=== PATIENT | female | born 1995 | race Caucasian/White ===

== ENCOUNTER 2019-10-23 20:57 | Emergency (ER) | payer MEDICAID ==
[~2019-10-23] VITALS: Ht 165.1 cm; Wt 61.2 kg
[2019-10-23 21:05] VITALS: BP_SYST 119
--- NOTE | 2019-10-23 21:30 | NUR ---
Patient to ER bed 2 to gown for evaluation. Side rails up. Report given to YUMIKO ROWE.
--- NOTE | 2019-10-23 21:33 | NUR ---
Pt presents to ER with c/o allergic reaction. Pt A&Ox4. 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 Pt states she ate salad 40 minutes ago and did not realize cheese was in salad. Pt when she realized, she took 2 benadryls and 1 pepcid but states she ran out of epinephrine. Pt states SOB, chest pressure and numbness and tingling in right lower extremity. Pt has clear bilateral lungs bilaterally with no use of accessory muscles. Pt oxygen saturation is 100% on room air. Tongue is within normal limits and is not swollen. Pt has no redness, itching or hives. Will continue to monitor.
[2019-10-23] MEDS ORDERED: EPINEPHrine 1 MG/ML AMP IM ONE (21:45)
[2019-10-23] MEDS ORDERED: NACL 0.9% 1,000 ML IV ONE (21:45)
--- NOTE | 2019-10-23 21:45 | NUR ---
ER Dr. Marin at bedside examining patient.
--- NOTE | 2019-10-23 21:56 | NUR ---
Pt medicated with 0.3mg of epinephrine IM. Pt tolerated well. Will continue to monitor.
--- NOTE | 2019-10-23 22:04 | NUR ---
# 18 gauge angiocath placed to L AC. Use of asceptic technique. Opsite placed over site. Blood return noted. Flushed with 10 cc of normal saline. No evidence of infiltration noted. Patient tolerated well.
--- NOTE | 2019-10-23 22:06 | NUR ---
Pt medicated with Normal Saline IV bolus.
--- NOTE | 2019-10-23 23:02 | NUR ---
Pt resting in bed with no complaints at this time. VSS.
--- NOTE | 2019-10-23 23:54 | NUR ---
Pt refused Solu-Medrol. Pt counseled by on importance of medication in course of treatment for allergic reaction. Pt refused medication, verbally states understanding of risks and benefits of refusal as counseled by .
[2019-10-24] MEDS ORDERED: methylPREDNISolone SOD SUCC/PF 62.5 MG/ML VIAL IVP ONE
[2019-10-24] MEDS ORDERED: EPINEPHrine 1 MG/ML AMP IM ONE (00:15)
[2019-10-24 01:17] VITALS: BP_SYST 116
--- NOTE | 2019-10-24 01:17 | NUR ---
Patient given written and verbal discharge instructions and verbalizes understanding. ER MD discussed with patient the results and treatment provided. Patient in stable condition. ID arm band removed. IV catheter removed intact and dressing applied, no active bleeding. Rx of Prednisone, Epinephrine auto-injectors, pepcid, benadryl given. Patient educated on pain management and s/s of further allergic reaction, instructed to follow up with PMD. Pain Scale 0/10. Opportunity for questions provided and answered. Medication side effect fact sheet provided.
== END 2019-10-24 01:17 | disposition home or self-care (01) ==
LOC: SED 20:57
DX: T78.2XXA Anaphylactic shock, unspecified, initial encounter (principal); Z91.011 Allergy to milk products
CPT/HCPCS: 81025; 96372 ×2; 99284; J0171 ×2

== ENCOUNTER 2020-06-05 07:42 | Emergency (ER) | payer MEDICAID ==
[~2020-06-05] VITALS: Ht 165.1 cm; Wt 55.8 kg
[2020-06-05 08:00] VITALS: BP_SYST 105
--- NOTE | 2020-06-05 08:00 | NUR ---
Patient triaged at this time. Denied any acute respiratory or cardiac distress at this time. Sent back to the waiting room. Patient's respiration's even and unlabored, speaking in full sentences and ambulating USING A WHEELCHAIR. VSS. MOM AT BEDSIDE. Informed of the approximate wait time. Instructed to notify ED staff for any changes in condition or worsening of symptoms. Patient verbalized understanding. Urine cup provided.
--- NOTE | 2020-06-05 08:20 | NUR ---
Patient presented to ER C/O allergic reaction. Patient ambulatory to ER A&Ox4, respirations equal bilat, skin pink and warm, afebrile, nausea, denies V/D, denies pain. Patient states she has tongue & throat swelling heart racing. PT report being seen at yeserday, given dexamethasone.
--- NOTE | 2020-06-05 08:21 | NUR ---
Patient to ER bed 08 to gown for evaluation. Side rails up. Report given to JAE WOO.
--- NOTE | 2020-06-05 08:23 | NUR ---
Patient arrived in the ED c/o tongue and throat swelling with nausea and vomiting and heart racing for the last 4 days. Denied any chest pain or shortness of breath. Denied any fevers and chills. Patient is alert and oriented x4, respirations even and unlabored, speaking in full sentences, and ambulating with a steady gait. VSS, pain level 6/10. Mom at bedside. Informed of the approximate wait time. Instructed to notify ED staff for any changes in condition or worsening of symptoms while waiting to be seen by an ED provider. Patient verbalized understanding.
--- NOTE | 2020-06-05 08:25 | NUR ---
ER Dr. Schwab at bedside examining patient.
[2020-06-05] MEDS ORDERED: LORazepam 1 MG TABLET PO ONE (08:30)
[2020-06-05] MEDS ORDERED: ONDANSETRON 4 MG ODT TAB PO ONE (08:30)
[2020-06-05 09:50] VITALS: BP_SYST 105
--- NOTE | 2020-06-05 09:53 | NUR ---
Patient given written and verbal discharge instructions and verbalizes understanding. ER MD discussed with patient the results and treatment provided. Patient in stable condition. ID arm band removed. Rx of Tramadol, Ambien and Zofran given. Patient educated on pain management and to follow up with PMD. Pain Scale 0/10. Opportunity for questions provided and answered. Medication side effect fact sheet provided.
== END 2020-06-05 09:50 | disposition home or self-care (01) ==
LOC: SED 07:42
DX: T78.40XA Allergy, unspecified, initial encounter (principal); Z91.011 Allergy to milk products; X58.XXXA Exposure to other specified factors, initial encounter
CPT/HCPCS: 99283; Q0162

== ENCOUNTER 2020-06-17 03:10 | Emergency (ER) | payer MEDICAID ==
[~2020-06-17] VITALS: Ht 165.1 cm; Wt 55.8 kg
[2020-06-17 03:27] VITALS: BP_SYST 139
--- NOTE | 2020-06-17 03:27 | NUR ---
Patient to ER bed 2 to gown for evaluation. Side rails up..
--- NOTE | 2020-06-17 03:30 | NUR ---
pt a&o x4 from home c/o of allergic reaction causing shortness of breathing, difficulty breathing, difficulty swallowing, tongue swelling, rapid heart rate and sharp nonradiating chest pain 6/10 starting about 30 mins ago. pt reports having an anaphylaxis reaction yesteday and using her epi pen. pt reports eating about 2 hours ago, turkey and stuffing. pt reports having 10 episodes of anaphylasix within the past two months. pt denies nausea, vomiting. pt O2 sat upon arrival is 100% on room air. pt denies fever, chills, cough.
--- NOTE | 2020-06-17 03:30 | NUR ---
# 20 gauge angiocath placed to LAC. Use of asceptic technique. Opsite placed over site. Blood return noted. Blood, blood cultures, lactic for lab drawn from site. Flushed with 10 cc of normal saline. No evidence of infiltration noted. Patient tolerated well.
--- NOTE | 2020-06-17 03:56 | NUR ---
ER MD DR. RYAN AT BEDSIDE. AWAITING ORDERS
[2020-06-17 04:24] LABS: BASOPHILS % (AUTO) 0.4 % (0.0-2.0); EOSINOPHILS % (AUTO) 0.1 % (0.0-4.0); HEMATOCRIT 43.9 % (36-48); HEMOGLOBIN 14.9 g/dL (12.0-16.0); LYMPHOCYTES # (AUTO) 2.2 K/uL (1.0-5.5); LYMPHOCYTES % (AUTO) 19.1 % (20.5-51.5); MEAN CORPUSCULAR HEMOGLOBIN 30 pg (27-31); MEAN CORPUSCULAR HGB CONC 34 % (32-36); MEAN CORPUSCULAR VOLUME 88 fL (79.0-98.0); MONOCYTES # (AUTO) 0.9 K/uL (0.0-1.0); MONOCYTES % (AUTO) 8.1 % (1.7-9.3); NEUTROPHILS # (AUTO) 8.1 K/uL (1.8-7.7); NEUTROPHILS % (AUTO) 72.3 % (40.0-70.0); PLATELET COUNT (AUTO) 344 K/uL (130-430); RED BLOOD CELL COUNT(AUTO) 5.02 MIL/uL (4.2-6.2); RED CELL DISTRIBUTION WIDTH 14.1 % (9.0-15.0); WHITE BLOOD COUNT (AUTO) 11.3 K/uL (4.8-10.8)
[2020-06-17 04:27] LABS: CREATININE 0.71 mg/dL (0.55-1.30); POTASSIUM 3.8 mmol/L (3.5-5.1)
--- NOTE | 2020-06-17 04:33 | NUR ---
radiology at bedside for chest xray.
[2020-06-17 04:45] LABS: ALBUMIN 4.2 g/dL (3.4-4.8); TOTAL BILIRUBIN 0.5 mg/dL (0.0-1.0)
--- NOTE | 2020-06-17 04:54 | NUR ---
Keyla martin in ED - 06/17/20 at 0454 by [email or web address] EZE RYAN AT BEDSIDE PERFORMING EYE EXAM.
[2020-06-17] MEDS ORDERED: DIPHENHYDRAMINE INJ 50 MG/ML VIAL IM ONE (05:30)
[2020-06-17] MEDS ORDERED: FAMOTIDINE 20 MG TABLET PO ONE (05:30)
[2020-06-17] MEDS: EPINEPHrine 1 MG/ML AMP IM ONE ×2 (05:40→05:42)
--- NOTE | 2020-06-17 05:40 | NUR ---
PATIENT REQUESTING TO SPEAK TO DR. RYAN. PATIENT STATES THAT SHE DOES NOT WANT EPINEPHRINE AND WOULD LIKE TO SIGN OUT AMA. SHE IS REQUESTING TO TAKE THE BENADRYL 50 MG IM. REPORTS BOYFRIEND IS WAITING OUTSIDE.
[2020-06-17 05:50] VITALS: BP_SYST 134
--- NOTE | 2020-06-17 06:01 | NUR ---
Patient does not wish to proceed with medical care recommended by DR. RYAN. Patient given information related to possible complications, up to and including , which could occur as a result of leaving hospital at this time. Patient verbalizes understanding of risks involved leaving against medical advice. Patient has signed AMA form.
== END 2020-06-17 06:01 | disposition left against medical advice (07) ==
LOC: SED 03:10
DX: R07.89 Other chest pain (principal); R06.02 Shortness of breath; Z91.011 Allergy to milk products
CPT/HCPCS: 36415; 71045; 80053; 84484; 84702-TC; 85025; 93005; 96372; 99285; J0171; J1200

== ENCOUNTER 2020-06-26 20:25 | Emergency (ER) | payer MEDICAID ==
[~2020-06-26] VITALS: Ht 165.1 cm; Wt 55.3 kg
--- NOTE | 2020-06-26 20:43 | NUR ---
Patient triaged and placed in waiting room. VSS and patient appears in no acute distress at this time. Accompanied by SELF, awaiting available bed, and MD notified of need for MSE.
[2020-06-26 20:44] VITALS: BP_SYST 122
--- NOTE | 2020-06-26 20:44 | NUR ---
pt vital signs stable, speaking in full sentences, breathing even and unlabored.
--- NOTE | 2020-06-26 21:08 | NUR ---
ER Dr. Marin in TRIAGE room examining patient.
--- NOTE | 2020-06-26 21:15 | NUR ---
LAB DRAWING BLOOD FROM PATIENT.
[2020-06-26 21:26] LABS: BASOPHILS # (AUTO) 0.1 K/uL (0.0-0.2); BASOPHILS % (AUTO) 0.6 % (0.0-2.0); EOSINOPHILS % (AUTO) 0.3 % (0.0-4.0); HEMATOCRIT 41.8 % (36-48); HEMOGLOBIN 14.3 g/dL (12.0-16.0); LYMPHOCYTES # (AUTO) 1.5 K/uL (1.0-5.5); MEAN CORPUSCULAR HEMOGLOBIN 30 pg (27-31); MEAN CORPUSCULAR HGB CONC 34 % (32-36); MEAN CORPUSCULAR VOLUME 87 fL (79.0-98.0); MONOCYTES # (AUTO) 0.1 K/uL (0.0-1.0); MONOCYTES % (AUTO) 1.2 % (1.7-9.3); NEUTROPHILS # (AUTO) 9.7 K/uL (1.8-7.7); NEUTROPHILS % (AUTO) 84.9 % (40.0-70.0); PLATELET COUNT (AUTO) 341 K/uL (130-430); RED BLOOD CELL COUNT(AUTO) 4.82 MIL/uL (4.2-6.2); RED CELL DISTRIBUTION WIDTH 14.2 % (9.0-15.0); WHITE BLOOD COUNT (AUTO) 11.4 K/uL (4.8-10.8)
[2020-06-26 21:39] LABS: CALCIUM 9.2 mg/dL (8.4-11.0); CREATININE 0.75 mg/dL (0.55-1.30)
[2020-06-26 21:50] LABS: ALBUMIN 4.1 g/dL (3.4-4.8); TOTAL BILIRUBIN 0.5 mg/dL (0.0-1.0)
--- NOTE | 2020-06-27 | NUR ---
Patient to [facility] for evaluation. Side rails up.
--- NOTE | 2020-06-27 00:10 | NUR ---
PT A&O X4 FROM HOME C/O OF ALLERGIC REACTION THAT STARTED EARLIER TODAY. PT WAS SEEN AT URGENT CARE AND RECEIVED STERIODS. PT STATES SHE IS HAVING DIFFICULTY BREATHING, CHEST TIGHTNESS, TONGUE SWELLING, THROAT SWELLING. PT DOES NOT APPEAR TO BE WORKING TO BREATH OR DIAPHORETIC. WILL CONTINUE TO MONITOR.
--- NOTE | 2020-06-27 00:29 | NUR ---
LAB AT BEDSIDE DRAWING BLOOD.
[2020-06-27] MEDS ORDERED: FAMOTIDINE 20 MG TABLET PO ONE (00:30)
[2020-06-27] MEDS ORDERED: DIPHENHYDRAMINE INJ 50 MG/ML VIAL IM ONE (00:30)
[2020-06-27] MEDS ORDERED: EPINEPHrine 1 MG/ML AMP IM ONE (00:30)
[2020-06-27] MEDS ORDERED: EPINEPHrine 1 MG/ML AMP ONE (00:58)
[2020-06-27] MEDS ORDERED: methylPREDNISolone SOD SUCC/PF 62.5 MG/ML VIAL IM ONE (01:00)
--- NOTE | 2020-06-27 01:32 | NUR ---
DR. RYAN AT BEDSIDE SPEAKING WITH PATIENT.
--- NOTE | 2020-06-27 02:12 | NUR ---
PATIENT STATES SHE FEELS LIKE HER CHEST TIGHTNESS AND DIFFICULTY BREATHING HAS IMPROVED. MD AWARE.
--- NOTE | 2020-06-27 03:15 | NUR ---
Patient given written and verbal discharge instructions and verbalizes understanding. ER MD discussed with patient the results and treatment provided. Patient in stable condition. ID arm band removed. Rx of epi pen and prednisone given. Patient educated on pain management and to follow up with PMD. Pain Scale 0/10. Opportunity for questions provided and answered. Medication side effect fact sheet provided.
[2020-06-27 03:58] VITALS: BP_SYST 126
== END 2020-06-27 03:15 | disposition home or self-care (01) ==
LOC: SED 20:25
DX: T78.2XXA Anaphylactic shock, unspecified, initial encounter (principal); R07.89 Other chest pain; J45.909 Unspecified asthma, uncomplicated; Z91.011 Allergy to milk products; X58.XXXA Exposure to other specified factors, initial encounter
CPT/HCPCS: 36415; 71045; 80053; 84484; 84702; 85025; 85379; 93005 ×2; 96372; 99285; J0171; J1200; J2930

== ENCOUNTER → 2020-07-08 | Emergency (ER) | payer MEDICAID ==
[~2020-07-08] VITALS: Ht 165.1 cm; Wt 55.3 kg
[2020-07-08 23:55] VITALS: BP_SYST 137
--- NOTE | 2020-07-08 23:55 | NUR ---
PT TO REMAIN IN ED LOBBY UNTIL ER BED BECOMES AVAILABLE.
--- NOTE | 2020-07-09 01:00 | NUR ---
PT LEFT WITHOUT BEING SEEN
== END | disposition still patient (30) ==
LOC: SED 21:21
DX: Z53.21 Procedure and treatment not carried out due to patient leaving prior to being seen by health care provider (principal)
CPT/HCPCS: 99281